=== PATIENT | female | born 1980 | race African-American/Black ===

== ENCOUNTER 2018-10-15 20:18 | Emergency (ER) | payer OTHER ==
[~2018-10-15] VITALS: Ht 172.7 cm; Wt 91.6 kg
[2018-10-15] MEDS ORDERED: cloNIDine HCL 0.1 MG TAB ONE (23:51)
[2018-10-16] MEDS ORDERED: cloNIDine HCL 0.1 MG TAB PO ONE
[2018-10-16] MEDS ORDERED: ACETAMINOPHEN 325 MG TAB PO ONE (04:15)
[2018-10-16] MEDS ORDERED: METHOCARBAMOL 500 MG TAB PO ONE (04:15)
[2018-10-16 05:46] VITALS: BP 150/103
== END 2018-10-16 06:22 | disposition home or self-care (01) ==
LOC: EDBD 20:18 → ER 20:18
DX: M54.2 Cervicalgia (principal); M25.571 Pain in right ankle and joints of right foot; I10 Essential (primary) hypertension; F17.210 Nicotine dependence, cigarettes, uncomplicated; Z88.0 Allergy status to penicillin; V43.92XA Unspecified car occupant injured in collision with other type car in traffic accident, initial encounter; Y93.89 Activity, other specified; Y92.488 Other paved roadways as the place of occurrence of the external cause; Y99.8 Other external cause status
CPT/HCPCS: 72040; 73610